=== PATIENT | male | born 1985 | race Caucasian/White ===

== ENCOUNTER 2020-08-16 09:53 | Emergency (ER) | payer BC, SELFPAY ==
[2020-08-16 10:30] VITALS: BP 123/76; PULSE 81; RESP 20; TEMP 36.9; O2SAT 99; BMI 31.5
--- NOTE | 2020-08-16 10:48 | HMH.EDUTC ---
[facility] [place] Impression: Encounter for laboratory testing for COVID-19 virus Disposition: Home, Self-Care Condition on Discharge: Good Instructions: DI for COVID-19 (Suspected or Confirmed ), Coronavirus Disease 2019, Preventing the Spread of Coronavirus Discharge Instructions Additional Instructions: *Monitor Temp, Over the counter Motrin or Tylenol as directed/as needed Tylenol every 4 hours and Motrin every 6 hours (as long as your family doctor has told you that you can take it) for fever or pain. and straight to ER if unable to lower temp less than 101.0 after medication given Follow up IMMEDIATELY for new or worsening symptoms or no Noticeable improvement over the next 48-72 hours. 911 for difficulty breathing or swallowing You were tested for today for COVID19 your test result should be back in the next 24-48 hours, you may call to the [facility] to see if your test results are back in the next 48 hours [phone] [facility] hours are 9am-9pm You was given a handout with instructions for Self Quarantine and Self isolation for while you wait on test results and what to do if they are positive If you are positive the Health Dept will be contacting you also Prescriptions: Brompheniramine/Pseudoephed/Dm [Bromfed Dm Cough Syrup] 5 - 10 ml PO Q46H PRN #150 ml PRN Reason: Cough Prescription Printed Fluticasone Propionate [Flonase 50mcg nasal spray 16gm] 1 spr NS DAILY #1 bottle Prescription Printed Referrals: Michoacano Rondon MD [Primary Care Provider] - As needed Forms: Work/School Release Time of Disposition: 10:53 Medical Decision Making - Thiago Inquiry Pt receiving controlled substance: No Thiago was queried for this patient: No Vital Signs: 08/16/20 10:30 Temperature 98.4 F Temperature Source Oral Pulse Rate [Right Brachial] 81 Respiratory Rate 20 Blood Pressure [Right Arm] 123/76 Blood Pressure Mean [Right Arm] 91 Blood Pressure Source [Right Arm] Automatic Cuff Blood Pressure Position [Right Arm] Sitting 02 Sat by Pulse Oximetry 99 Oxygen Delivery Method Room Air Orders (Tests/Meds): ORDERS Category Date Time Status Covid-19 Nasal PCR ([facility]) Routine Lab 08/16/20 10:24 [place] [facility] [place] - General Stated complaint: Covid test Time Seen by Provider: 08/16/20 10:48 Mode of Arrival: Ambulatory Limitations: No Limitations Description of Symptoms (Recalled from Triage Doc. by RN): PATIENT REQUESTING COVID TEST D/T EXPOSURE; DENIES SYMPTOMS HEENT Symptoms (Recalled from RN notes): No Resp Symptoms (Recalled from RN notes): No Skin Symptoms (Recalled from RN notes): No MS Symptoms (Recalled from RN notes): No Functional Status (Recalled from RN notes): WNL - History of Present Illness Provider Complaint: Patient states that he has been exposed recently to COVID States that he has been having a runny nose and cough and has a child with health problems at home and wants to get tested to be safe - Related Data Previous Rx's Medication Instructions Recorded Brompheniramine/Pseudoephed/Dm 5 - 10 ml PO Q46H PRN #150 ml 08/16/20 [Bromfed Dm Cough Syrup] Fluticasone Propionate [Flonase 1 spr NS DAILY #1 bottle 08/16/20 50mcg nasal spray 16gm] Allergies Allergy/AdvReac Type Severity Reaction Status Date / Time NO KNOWN ALLERGIES - NKA Allergy Mild Uncoded 07/30/17 14:46 - Worker's Comp Is this a Worker's Comp case?: No [facility] History - Hepatitis A Screen Drug use history?: No High risk sexual behaviors?: No History of sexually transmitted infection?: No Currently employed?: No Childcare worker?: No Do you have indoor plumbing?: Yes Do you have electricity?: Yes Attestation statement:: This patient has been screened for Hepatitis A risk factors. I have reviewed the patient's past medical history: Yes - Social History Alcohol Intake: never Occupational Status: other ROS Obtained: Yes All systems reviewed & no additional complaints, Yes Systems reviewed a
[2020-08-16 10:54] VITALS: BP 123/76; PULSE 81; RESP 20; TEMP 36.9; O2SAT 99
== END 2020-08-16 11:00 | disposition home or self-care (01) ==
PROVIDERS: Emergency Provider Nurse Practitioner; PCP Family Medicine
DX: Z20.822 Contact with and (suspected) exposure to COVID-19 (principal); R05 Cough
CPT/HCPCS: 99202; G0463; U0003

== ENCOUNTER 2021-04-11 16:08 | Emergency (ER) | payer BC, SELFPAY ==
[2021-04-11 16:09] VITALS: BP 162/92; PULSE 75; RESP 18; TEMP 36.9; O2SAT 100; BMI 29.4
--- NOTE | 2021-04-11 16:22 | HMH.EDGENADL ---
ED Disposition Clinical Impression: Colitis Disposition: Home, Self-Care Condition on Discharge: Good Instructions: DI for Acute Abdominal Pain, DI for Colitis Additional Instructions: Ibuprofen for pain. Outpatient diarrhea panel. Return to the emergency department if worsening pain, fever greater than 100.5 degrees, blood in diarrhea, intractable vomiting. You are being provided with a list of physicians available for follow-up of your condition. Please call a physician on this list to arrange a follow-up appointment as soon as possible. Prescriptions: Ibuprofen [Ibuprofen 800mg Tablet] 800 mg PO Q8HP PRN #15 tab PRN Reason: Moderate Pain Prescription Printed Referrals: Provider,Referral, [Primary Care Provider] - - Critical Care Critical Care Time: No Attestation: On , the high probability of a clinically significant, sudden or life threatening deterioration of the following system(s) required my full and direct attention, intervention and personal management. The time I documented below is in addition to time spent performing reported procedures but includes the following listed in this critical care notation. Medical Decision Making - Thiago Inquiry Pt receiving controlled substance: No Vital Signs: 04/11/21 16:09 04/11/21 18:10 Temperature 98.5 F 98.1 F Temperature Source Oral Oral Pulse Rate 67 Pulse Rate [Right] 75 Respiratory Rate 18 20 Blood Pressure 129/73 Blood Pressure [Right Arm] 162/92 H Blood Pressure Mean [Right Arm] 115 Blood Pressure Source Automatic Cuff Blood Pressure Position Sitting 02 Sat by Pulse Oximetry 100 Oxygen Delivery Method Room Air Room Air - Lab Data Lab Results 04/11/21 16:45: Urine Color Yellow, Urine Appearance Sl cloudy, Urine pH 7.0, Ur Specific [place] 1.025, Urine Protein Negative, Urine Glucose (UA) Negative, Urine Ketones Negative, Urine Blood Negative, Urine Nitrate Negative, Urine Bilirubin Negative, Urine Urobilinogen 1.0, Ur Leukocyte Esterase Negative, Urine RBC Occasional, Urine WBC None, Ur Squamous Epith Cells Occasional, Urine Bacteria None 04/11/21 16:45: WBC 7.2, RBC 4.59 L, Hgb 15.2, Hct 45.7, MCV 99.5 H, MCH 33.1 H, MCHC 33.3, RDW 12.8, Plt Count 256, MPV 8.8, Neut % (Auto) 66.4, Lymph % (Auto) 28.1, [place] % (Auto) 4.1, Eos % (Auto) 1.0, Baso % (Auto) 0.4, Neut # (Auto) 4.8, Lymph # (Auto) 2.0, [place] # (Auto) 0.3, Eos # (Auto) 0.1, Baso # (Auto) 0.0 04/11/21 16:45: Sodium 144, Potassium 3.8, Chloride 105, Carbon Dioxide 29, Anion Gap 13.8, BUN 8 L, Creatinine 0.60 L, Estimated Creat Clear 230, Estimated GFR 155, Est GFR ( Amer) 188, Glucose 108 H, Calcium 9.6, Total Bilirubin 1.3, AST 29, ALT 17, Alkaline Phosphatase 86, Total Protein 8.2, Albumin 4.7, Globulin 3.5 H, Albumin/Globulin Ratio 1.3, Amylase 51, Lipase 53 Result diagrams: 04/11/21 16:45 04/11/21 16:45 Orders (Tests/Meds): ED MEDICATIONS Discontinued Medications Generic Name Dose Route Start Last Admin Trade Name Giana PRN Reason Stop Dose Admin Famotidine 20 mg 04/11/21 16:43 04/11/21 16:48 Famotidine 20mg/2ml Vial IV 04/11/21 16:44 20 mg ONCE ONE Administration Iopamidol 75 ml 04/11/21 17:20 04/11/21 17:21 Iopamidol-370 (76%);100ml Bottle IV 04/11/21 17:21 75 ml ONCE ONE Administration Ketorolac Tromethamine 30 mg 04/11/21 17:45 04/11/21 17:56 Ketorolac 30mg/Ml Vial IV 04/11/21 17:46 30 mg ONCE ONE Administration Morphine Sulfate 4 mg 04/11/21 16:43 04/11/21 16:48 Morphine 4mg/Ml Syringe IV 04/11/21 16:44 4 mg ONCE ONE Administration Ondansetron HCl 4 mg 04/11/21 16:43 04/11/21 16:48 Ondansetron 4mg/2ml Vial IV 04/11/21 16:44 4 mg ONCE ONE Administration Sodium Chloride 1,000 ml 04/11/21 16:35 04/11/21 16:48 Sodium Chloride 0.9% 1000ml Bag IV 04/11/21 16:36 1,000 ml BOLUS ONE Administration Sodium Chloride 8 ml 04/11/21 16:43 Sodium Chloride 0.9% 10ml Vial IV 05/11
--- NOTE | 2021-04-11 16:34 | CT_ITS ---
PROCEDURE INFORMATION: Exam: CT Abdomen And Pelvis With Contrast Exam date and time: 04/11/2021 4:34 PM Age: 35 years old Clinical indication: Other: Upper abdominal pain, 2 episodes diarrhea; Localized; Prior surgery; Surgery date: 6+ months; Surgery type: Choleycystectomy; Patient HX: Upper abdominal pain for 2 days with 2 episodes of diarrhea yesterday. TECHNIQUE: Imaging protocol: Computed tomography of the abdomen and pelvis with contrast. Radiation optimization: All CT scans at this facility use at least one of these dose optimization techniques: automated exposure control; mA and/or kV adjustment per patient size (includes targeted exams where dose is matched to clinical indication); or iterative reconstruction. Contrast material: ISOVUE; Contrast volume: 75 ml; Contrast route: IV; COMPARISON: No relevant prior studies available. FINDINGS: Liver: Normal. No mass. Gallbladder and bile ducts: There has been a cholecystectomy. Pancreas: Normal. No ductal dilation. Spleen: Normal. No splenomegaly. Adrenal glands: Normal. No mass. Kidneys and ureters: 2.6 cm right renal cyst. The left kidney is normal. Stomach and bowel: Mild thickening of the doe of the descending colon with pericolonic fat stranding consistent with colitis. Appendix: No evidence of appendicitis. Intraperitoneal space: Normal. No significant fluid collection. Vasculature: Unremarkable. No abdominal aortic aneurysm. Lymph nodes: Unremarkable. No enlarged lymph nodes. Urinary bladder: Unremarkable as visualized. Reproductive: Unremarkable as visualized. Bones/joints: Old right-sided rib fractures are present. Soft tissues: Soft tissues are normal. Other findings: No discrete abscess formation. IMPRESSION: 1. Mild thickening of the doe of the descending colon with pericolonic fat stranding consistent with colitis. 2. No discrete abscess formation. COMMENTS: Consistent with the [employer]'s Incidental Findings Committee white paper (J Am Oanh Radiol 2018): Any incidental renal lesion less than 1 cm or classified as too small to characterize, or any incidental cystic renal lesion characterized as simple-appearing, is likely benign. No follow-up imaging is recommended for these lesions per consensus recommendations based on imaging criteria.
[2021-04-11 16:54] LABS: Microscopic, Urine URINE MICROSCOPIC (MICROSCOPIC)
[2021-04-11 16:58] LABS: Appearance,Urine SL CLOUDY (Clear); Bilirubin,Urine Negative (Negative); Blood, Urine Negative (Negative); Color,Urine YELLOW (Yellow); Glucose,Urine (UA) Negative (Negative); Ketones,Urine Negative (Negative); Leukocyte Esterase,Urine Negative (Negative); Nitrate,Urine Negative (Negative); Protein,Urine Negative (Negative); Specific Gravity, Urine 1.025 (1.005-1.030)
[2021-04-11 17:01] LABS: Chloride 105 mmol/L (98-107); Potassium 3.8 mmoL/L (3.5-5.1); Sodium 144 mmol/L (136-145)
[2021-04-11 17:03] LABS: Alanine Aminotransferase 17 U/L (12-78); Amylase 51 U/L (30-110); Aspartate Amino Transferase 29 U/L (17-59); Blood Urea Nitrogen 8 mg/dl (9-20); Creatinine Clearance Estimated 230 mL/min (50-200); Estimated Glomerular Filt Rate 155 ml/min (>60); GFR (African American) 188 ML/MIN (>60)
[2021-04-11 17:04] LABS: Albumin Level 4.7 g/dl (3.5-5.0); Albumin/Globulin Ratio 1.3 (1.1-1.8); Alkaline Phosphatase 86 U/L (38-126); Anion Gap 13.8 mEq/L (5-15); Bilirubin,Total 1.3 mg/dl (0.2-1.3); Calcium 9.6 mg/dl (8.4-10.2); Carbon Dioxide 29 mmol/L (22.0-30.0); Globulin 3.5 g/dL (1.3-3.2); Glucose 108 mg/dl (74-100); Lipase 53 U/L (23-300); Total Protein,Serum 8.2 g/dl (6.3-8.2)
[2021-04-11 17:11] LABS: RBC,Urine Occasional #/hpf (0-3); Squamous Epithelial Cell,Urine Occasional #/hpf (0-5)
[2021-04-11 17:13] LABS: Basophils % 0.4 % (0.1-2.0); Eosinophils # 0.1 K/mm3 (0.0-0.4); Hematocrit 45.7 % (42.0-52.0); Hemoglobin 15.2 g/dL (14.1-18.0); Lymphocytes % 28.1 % (10-50); Mean Corpuscular HGB Conc 33.3 g/dL (31.8-35.4); Mean Corpuscular Hemoglobin 33.1 pg (27.0-31.2); Mean Corpuscular Volume 99.5 fl (80-94); Mean Platelet Volume 8.8 fl (7.4-10.4); Monocytes # 0.3 K/mm3 (0.1-1.0); Monocytes % 4.1 % (1.7-9.3); Neutrophils # 4.8 K/mm3 (1.8-7.8); Neutrophils % 66.4 % (37.0-80.0); Platelet Count 256 K/mm3 (142-424); Red Blood Count 4.59 M/mm3 (4.60-6.20); Red Cell Distribution Width 12.8 % (11.5-17.5); White Blood Count 7.2 K/mm3 (4.8-10.8)
--- NOTE | 2021-04-11 17:22 | PC.NURSE ---
pt returning from rad.
[2021-04-11 18:10] VITALS: BP 129/73; PULSE 67; RESP 20; TEMP 36.7; O2SAT 100
== END 2021-04-11 18:12 | disposition home or self-care (01) ==
PROVIDERS: Emergency Provider Emergency Medicine
DX: K52.9 Noninfective gastroenteritis and colitis, unspecified (principal)
CPT/HCPCS: 36415; 74177; 80053; 81001; 82150; 83690; 85025; 96365; 96375; 99282; J2405; Q9967

== ENCOUNTER 2024-01-29 20:28 | Emergency (ER) | payer BC, SELFPAY ==
[2024-01-29 20:30] VITALS: BP 163/93; PULSE 65; RESP 18; TEMP 36.9; O2SAT 100; BMI 27.2
--- NOTE | 2024-01-29 20:33 | ED_ITS ---
<Statement entered by Candido Tejada MD - 01/29/24 23:33> I was consulted by the BREN, and we discussed the complexity of the problems being addressed. I approved the treatment and management plan for this patient's care in the emergency department, thus performing a substantive portion of the medical decision making. Candido Tejada MD, MADAY, FACEP Discharge Plan Disposition Patient Disposition: Home, Self-Care Condition: Good Prescriptions Prescriptions: No Action ibuprofen 800 MG tablet 800 mg PO Q8HP PRN (Reason: Moderate Pain) Qty: 15 0RF Referrals Follow up/Referrals: Golden Gannon DO [Staff Physician] - See instructions Provider,Referral, [Primary Care Provider] - See instructions Activity Restrictions/Add. Instructions Additional Instructions/Restrictions: Please keep splint in place. We referred you to orthopedics. Please call in the morning to make an appointment. Return to ER for any worsening signs or symptoms. Clinical Impressions Clinical Impression: Fracture of fifth metacarpal bone of right hand Qualifiers: Encounter type: initial encounter Fracture type: closed Metacarpal location: shaft Stand Alone Forms Stand Alone Forms: Work/School Release Instructions Patient Instructions: DI for Boxer's Fracture Discharge ED Provider: Candido Tejada General Adult HPI <RUDI Byrne - Last Filed: 01/29/24 21:15> General Chief complaint: Extremity Injury, Upper Stated complaint: AO 01-29-24 smashed right hand Time Seen by Provider: 01/29/24 20:33 History of Present Illness HPI narrative: Patient presents for evaluation of a right hand injury. Patient reports he caught his hand between a 2 x 4 and pool stairs crushing it yesterday patient took nonsteroidals and went to sleep thinking that it would be better. He tried to work with it all day but has gotten worse and worse. Patient reports reduced range of motion due to the pain and swelling however he is neurovascular intact currently Related Data Previous Rx's Medication Instructions Recorded ibuprofen 800 mg tablet 800 mg PO Q8HP PRN Moderate Pain 04/11/21 #15 tabs Allergies Allergy/AdvReac Type Severity Reaction Status Date / Time No Known Allergies Allergy Verified 04/11/21 16:23 PFSH <RUDI Byrne - Last Filed: 01/29/24 21:15> [facility] Disclaimer: The information contained in this section may have been updated after the patient was seen, as this information can be updated by other users. Social History Smoking Status: Current every day smoker alcohol intake: never current occupational status: other Travel in the last 8 weeks: None <RUDI Byrne - Last Filed: 01/29/24 21:15> ROS Obtained: Yes Systems reviewed as appropriate & no additional complaints except as documented Physical Exam <RUDI Byrne - Last Filed: 01/29/24 21:15> General General appearance: alert and in no apparent distress Respiratory Respiratory exam: Present normal lung sounds bilaterally Cardiovascular Cardiovascular exam: Present regular rate and normal rhythm Extremities Exam Extremities exam: Present full ROM and tenderness; Absent normal inspection Neurological Exam Neurological exam: Present alert and oriented X3 Skin Skin exam: Present dry Other Other exam information: Patient has swelling and ecchymosis to his right hand. Ecchymosis is visible on the palmar and dorsal surface that seems to be originating from primarily the fifth metacarpal. He is most tender over the midshaft of the fifth metacarpal. Patient does have preserved range of motion motor and sensory however it is very painful over the fourth and fifth digits. Medical Decision Making <RUDI Byrne - Last Filed: 01/29/24 21:15> Medical Records Medical records reviewed: Yes I reviewed the patient's medical records. Thiago Inquiry Pt receiving controlled substance: No Vital Signs: 01/29/24 20:30 01/29/24 20:37 01/29/24 21:14 Temperature 98.4 F Temperature Source Oral Pulse Rate 74 74 Pulse Rate [Right] 65 Respiratory Rate 18 16 24 Blood Pressure 139/88 133/65 Blood Pressure [Right Arm] 163/93 H Blood Pressure Mean [Right Arm] 116 Blood Pressure Source Automatic Cuff Automatic Cuff Blood Pressure Position Sitting Supine 02 Sat by Pulse Oximetry 100 100 97 Oxygen Delivery Method Room Air Room Air Orders (Tests/Meds): ED MEDICATIONS Discontinued Medications Generic Name Dose Route Start Last Admin Trade Name Freq PRN Reason Stop Dose Admin Acetaminophen 1,000 mg 01/29/24 20:35 01/29/24 20:41 Acetaminophen 500mg Tab PO 01/29/24 20:36 1,000 mg ONCE ONE Administration Ibuprofen 800 mg 01/29/24 20:35 01/29/24 20:40 Ibuprofen 400 Mg Tablet PO 01/29/24 20:36 800 mg ONCE ONE Administration ORDERS Category Date Time Status Hand XR right minimum 3 views [XR hand RT min 3V] Stat Exams 01/29/24 20:35 Taken Medical Decision Narrative: In summary patient is a 38-year-old male who presents to the emergency department for evaluation of right hand injury. Patient is hemodynamically stable upon arrival, afebrile. Physical exam is remarkable for ecchymosis edema and pain of the right hand over the shaft of the fifth metacarpal primarily. This is his dominant hand. He is neurovascularly intact although he has painful range of motion in the fingers especially the fourth of the fifth. Differential diagnosis includes contusion versus fracture. Initial workup will be conducted with plain film x-rays. Initial interventions include Tylenol Motrin. Initial workup reviewed by me and my informal interpretation shows a distal shaft fifth metacarpal fracture slightly displaced. Upon repeat evaluation patient has slight improvement in his pain after initial intervention. Given this patient has been placed in a ulnar gutter splint and referred to orthopedics. <Candido Tejada MD - Last Filed: 01/29/24 21:19> Vital Signs: 01/29/24 20:30 01/29/24 20:37 01/29/24 21:14 Temperature 98.4 F Temperature Source Oral Pulse Rate 74 74 Pulse Rate [Right] 65 Respiratory Rate 18 16 24 Blood Pressure 139/88 133/65 Blood Pressure [Right Arm] 163/93 H Blood Pressure Mean [Right Arm] 116 Blood Pressure Source Automatic Cuff Automatic Cuff Blood Pressure Position Sitting Supine 02 Sat by Pulse Oximetry 100 100 97 Oxygen Delivery Method Room Air Room Air Orders (Tests/Meds): ED MEDICATIONS Discontinued Medications Generic Name Dose Route Start Last Admin Trade Name Freq PRN Reason Stop Dose Admin Acetaminophen 1,000 mg 01/29/24 20:35 01/29/24 20:41 Acetaminophen 500mg Tab PO 01/29/24 20:36 1,000 mg ONCE ONE Administration Ibuprofen 800 mg 01/29/24 20:35 01/29/24 20:40 Ibuprofen 400 Mg Tablet PO 01/29/24 20:36 800 mg ONCE ONE Administration ORDERS Category Date Time Status Hand XR right minimum 3 views [XR hand RT min 3V] Stat Exams 01/29/24 20:35 Taken Procedures <Candido Tejada MD - Last Filed: 01/29/24 21:19> Orthopedic Splinting/Casting Injury #1: Side: right Upper Extremity Injury Location: hand Upper Extremity Immobilizer: ulnar gutter Post Cast/Splinting Neuro Status: intact Post Cast/Splinting Vasc Status: intact Critical Care <RUDI Byrne - Last Filed: 01/29/24 21:15> Critical Care Time Critical Care Time: No
--- NOTE | 2024-01-29 20:35 | XR_ITS ---
PROCEDURE INFORMATION: Exam: XR Right Hand Exam date and time: 01/29/2024 8:44 PM Age: 38 years old Clinical indication: Injury or trauma; Other: Crushed hand; Crushing; Right; Additional info: Crush injury TECHNIQUE: Imaging protocol: Radiologic exam of the right hand. Views: 3 or more views. COMPARISON: No relevant prior studies available. FINDINGS: Bones/joints: Mildly comminuted fracture of the 5th metacarpal distal diaphysis with moderate soft tissue swelling. Soft tissues: See Bones/joints finding. IMPRESSION: Mildly comminuted fracture of the 5th metacarpal distal diaphysis with moderate soft tissue swelling.
[2024-01-29 20:37] VITALS: BP 139/88; PULSE 74; RESP 16; O2SAT 100
[2024-01-29] MEDS: IBUPROFEN 400 MG TABLET 800 MG PO (20:40)
[2024-01-29] MEDS: ACETAMINOPHEN 500MG TAB 1000 MG PO (20:41)
[2024-01-29 21:14] VITALS: BP 133/65; PULSE 74; RESP 24; O2SAT 97
[2024-01-29 21:24] VITALS: BP 128/77; PULSE 71; RESP 16; TEMP 36.6; O2SAT 100
== END 2024-01-29 21:26 | disposition home or self-care (01) ==
PROVIDERS: Emergency Provider Student in an Organized Health Care Education/Training Program
DX: S62.306A Unspecified fracture of fifth metacarpal bone, right hand, initial encounter for closed fracture (principal); W23.2XXA Caught, crushed, jammed or pinched between a moving and stationary object, initial encounter; F17.210 Nicotine dependence, cigarettes, uncomplicated
CPT/HCPCS: 29125; 73130; 99283

== ENCOUNTER 2024-02-12 10:01 | Outpatient (CLI) | payer BC, SELFPAY ==
--- NOTE | 2024-02-12 10:05 | XR_ITS ---
FINAL REPORT CLINICAL HISTORY: right hand boxer fx COMPARISON: 01/29/2024 FINDINGS: RIGHT HAND: 3 views of the right hand were obtained. A fracture of the distal fifth metacarpal is once again identified, with worsening palmar angulation of the distal fragment when compared to the prior exam. No definite callus formation is identified. Visualized joint spaces are normally aligned. Soft tissues are unremarkable. IMPRESSION: Distal fifth metacarpal fracture, with worsening palmar angulation of the distal fragment when compared to the prior exam of January 28. Reviewed, Interpreted and Dictated by Maksim Singer III, MD Transcribed by Carlee Malhotra Authenticated and [facility]
== END 2024-02-12 23:59 | disposition home or self-care (01) ==
LOC: RAD 10:03
PROVIDERS: Visit Provider Physician Assistant
DX: M79.641 Pain in right hand (principal); S62.336A Displaced fracture of neck of fifth metacarpal bone, right hand, initial encounter for closed fracture
CPT/HCPCS: 73130

== ENCOUNTER 2024-03-04 10:06 | Outpatient (CLI) | payer BC, SELFPAY ==
--- NOTE | 2024-03-04 10:09 | XR_ITS ---
FINAL REPORT CLINICAL HISTORY: Rt Hand pain, out of cast today COMPARISON: 02/12/2024 FINDINGS: Three views show mild callus formation of a now seen distal 5th metacarpal fracture indicating some fracture healing. There is mild angulation. The joint spaces are normal. IMPRESSION: Healing fracture of a 5th metacarpal fracture with stable angulation. Reviewed, Interpreted and Dictated by Alyce Sylvester MD Transcribed by Davina Quinones Authenticated and [facility]
== END 2024-03-04 23:59 | disposition home or self-care (01) ==
LOC: RAD 10:06
PROVIDERS: Visit Provider Physician Assistant
DX: M79.641 Pain in right hand (principal)
CPT/HCPCS: 73130

== ENCOUNTER 2024-04-01 10:09 | Outpatient (CLI) | payer BC, SELFPAY ==
--- NOTE | 2024-04-01 10:11 | XR_ITS ---
FINAL REPORT CLINICAL HISTORY: rt hand pain..f/u COMPARISON: 03/04/2024 FINDINGS: Right hand Three views were obtained. There is a healing fracture through the distal 5th metacarpal. There is volar angulation of the distal fracture fragment. Lucency is seen in the distal 5th metacarpal. No other fracture or dislocation is identified. IMPRESSION: Progressive healing as above. Reviewed, Interpreted and Dictated by Lambert Schililng MD Transcribed by Davina Quinones Authenticated and [facility]
== END 2024-04-01 23:59 | disposition home or self-care (01) ==
LOC: RAD 10:09
PROVIDERS: Visit Provider Physician Assistant
DX: M79.641 Pain in right hand (principal)
CPT/HCPCS: 73130

== ENCOUNTER 2024-04-27 10:20 | Outpatient (CLI) | payer BC, SELFPAY ==
--- NOTE | 2024-04-27 10:27 | XR_ITS ---
FINAL REPORT CLINICAL HISTORY: Right Hand Boxer Fx COMPARISON: 04/01/2024 FINDINGS: AP, lateral and oblique views of the right hand were obtained. There is no acute fracture or dislocation. There has been interval healing of the previously described boxer's fracture of the distal fifth metacarpal. The joint spaces are preserved. The soft tissues are normal. IMPRESSION: Interval healing of the previously described boxer's fracture of the distal fifth metacarpal. Reviewed, Interpreted and Dictated by Denise Morales MD Transcribed by Carlee Malhotra Authenticated and [facility]
== END 2024-04-27 23:59 | disposition home or self-care (01) ==
LOC: RAD 10:20
PROVIDERS: Visit Provider Orthopaedic Surgery
DX: M79.641 Pain in right hand (principal); S62.306A Unspecified fracture of fifth metacarpal bone, right hand, initial encounter for closed fracture
CPT/HCPCS: 73130